=== PATIENT | female | born 1975 | race Caucasian/White ===

== ENCOUNTER 2020-08-28 11:17 | Emergency (ER) | payer BC, OTHER ==
--- NOTE | 2020-08-28 13:28 | ER ---
Nurse's Notes [facility] [place] Name: Traci Gaines Age: 44 yrs Sex: Female : 1975 Arrival Date: 08/28/2020 Time: 11:23 Bed 26 Private MD: Diagnosis: External constriction of right ring finger;Ring or other jewelry causing external constriction-removed Presentation: 08/28 11:57 Chief complaint: Patient states: her mothers wedding ring stuck on her right ring iw finger since last night. Coronavirus screen: At this time, the client does not indicate any symptoms associated with coronavirus-19. Ebola Screen: Patient negative for fever greater than or equal to 101.5 degrees Fahrenheit, and additional compatible Ebola Virus Disease symptoms Patient denies exposure to infectious person. Patient denies travel to an Ebola-affected area in the 21 days before illness onset. No symptoms or risks identified at this time. Initial Sepsis Screen: Does the patient meet any 2 criteria? No. Patient's initial sepsis screen is negative. Does the patient have a suspected source of infection? No. Patient's initial sepsis screen is negative. Risk Assessment: Do you want to hurt yourself or someone else? Patient reports no desire to harm self or others. Onset of symptoms was August 27, 2020. 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 - Social history:: Smoking status: Patient denies any tobacco usage or history of. - Family history:: not pertinent. Screenin:09 Abuse screen: Denies threats or abuse. Denies injuries from another. Nutritional ca1 screening: No deficits noted. Tuberculosis screening: No symptoms or risk factors identified. Fall Risk None identified. Assessment: 13:09 General: Appears in no apparent distress. comfortable, Behavior is calm, cooperative, ca1 appropriate for age. Pain: Complains of pain in dorsal aspect of proximal phalanx of right ring finger Pain currently is 6 out of 10 on a pain scale. Neuro: Level of Consciousness is awake, alert, obeys commands, Oriented to person, place, time, situation. Derm: Skin is intact, is healthy with good turgor, Skin is pink, warm \T\ dry. Musculoskeletal: Circulation, motion, and sensation intact. Capillary refill < 3 seconds. Vital Signs: 12:37 BP 133 / 75; Pulse 83; Resp 20; Temp 98.4(O); Pulse Ox 100% ; Weight 106.14 kg (M); iw Height 5 ft. 4 in. (162.56 cm) (R); Pain 6/10; 12:37 Body Mass Index 40.17 (106.14 kg, 162.56 cm) iw ED Course: 11:23 Patient arrived in ED. as 11:58 Triage completed. iw 11:58 Arm band placed on. iw 12:36 Cathy Giron, JAKE is Primary Nurse. iw 12:43 Mario Cruz MD is Attending Physician. [facility] 12:55 Primary Nurse role handed off by Cathy Giron RN ca1 12:55 Ngozi Floers RN is Primary Nurse. ca1 13:09 Patient has correct armband on for positive identification. ca1 13:14 Removal of Removed ring from right ring finger. Removed ring with ring cutter Patient ca1 tolerated well. 13:14 Neosporin and band aid applied. ca1 13:40 No provider procedures requiring assistance completed. Patient did not have IV access ca1 during this emergency room visit. Administered Medications: No medications were administered Outcome: 13:27 Discharge ordered by . [facility] 13:40 Discharged to home ambulatory, with significant other. ca1 13:40 Condition: stable 13:40 Discharge instructions given to patient, Instructed on discharge instructions, follow up and referral plans. medication usage, Demonstrated understanding of instructions, follow-up care, medications, Prescriptions given X 1. 13:40 Patient left the ED. ca1 Signatures: Mario Cruz MD MD cha Martinez, Amelia as Cathy Giron RN RN Ngozi Flores RN RN ca1
--- NOTE | 2020-08-28 13:28 | EDPHYS ---
Physician Documentation [facility] Name: Traci Gaines Age: 44 yrs Sex: Female : 1975 Arrival Date: 08/28/2020 Time: 11:23 Bed 26 Private MD: JULIO C Physician Mario Cruz HPI: 08/28 13:17 This 44 yrs old Female presents to ER via Ambulatory with complaints of ring alexandra stuck on finger. 13:17 The patient or guardian reports decreased range of motion, pain. The complaints affect alexandra the MCP of right ring finger. Context: The problem was sustained at home, resulted from small rings on right ring finger. Onset: The symptoms/episode began/occurred yesterday. Modifying factors: The symptoms are alleviated by nothing, the symptoms are aggravated by nothing. Associated signs and symptoms: The patient has no apparent associated signs or symptoms. Severity of symptoms: At their worst the symptoms were mild, moderate, this morning. The patient has not experienced similar symptoms in the past. 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 - Social history:: Smoking status: Patient denies any tobacco usage or history of. - Family history:: not pertinent. ROS: 13:17 Constitutional: Negative for fever, chills, and weight loss, Eyes: Negative for injury, alexandra pain, redness, and discharge, ENT: Negative for injury, pain, and discharge, Neck: Negative for injury, pain, and swelling, Cardiovascular: Negative for chest pain, palpitations, and edema, Respiratory: Negative for shortness of breath, cough, wheezing, and pleuritic chest pain, Abdomen/GI: Negative for abdominal pain, nausea, vomiting, diarrhea, and constipation, Back: Negative for injury and pain, : Negative for injury, bleeding, discharge, and swelling, Skin: Negative for injury, rash, and discoloration, Neuro: Negative for headache, weakness, numbness, tingling, and seizure, Psych: Negative for depression, anxiety, suicide ideation, homicidal ideation, and hallucinations, Allergy/Immunology: Negative for hives, rash, and allergies, Endocrine: Negative for neck swelling, polydipsia, polyuria, polyphagia, and marked weight changes, Hematologic/Lymphatic: Negative for swollen nodes, abnormal bleeding, and unusual bruising. 13:17 MS/extremity: Positive for pain, swelling, of the dorsal aspect of proximal phalanx of right ring finger and palmar aspect of proximal phalanx of right ring finger. Exam: 13:17 Constitutional: This is a well developed, well nourished patient who is awake, alert, alexandra and in no acute distress. Head/Face: Normocephalic, atraumatic. Eyes: Pupils equal round and reactive to light, extra-ocular motions intact. Lids and lashes normal. Conjunctiva and sclera are non-icteric and not injected. Cornea within normal limits. Periorbital areas with no swelling, redness, or edema. ENT: Nares patent. No nasal discharge, no septal abnormalities noted. Tympanic membranes are normal and external auditory canals are clear. Oropharynx with no redness, swelling, or masses, exudates, or evidence of obstruction, uvula midline. Mucous membranes moist. Neck: Trachea midline, no thyromegaly or masses palpated, and no cervical lymphadenopathy. Supple, full range of motion without nuchal rigidity, or vertebral point tenderness. No Meningismus. Chest/axilla: Normal chest wall appearance and motion. Nontender with no deformity. No lesions are appreciated. Cardiovascular: Regular rate and rhythm with a normal S1 and S2. No gallops, murmurs, or rubs. Normal PMI, no JVD. No pulse deficits. Respiratory: Lungs have equal breath sounds bilaterally, clear to auscultation and percussion. No rales, rhonchi or wheezes noted. No increased work of breathing, no retractions or nasal flaring. Abdomen/GI: Soft, non-tender, with normal bowel sounds. No distension or tympany. No guarding or rebound. No evidence of tenderness throughout. Back: No spinal tenderness. No costovertebral tenderness. Full range of motion. Skin: Warm, dry with normal turgor. Normal color with no rashes, no lesions, and no evidence of cellulitis. Neuro: Awake and alert, GCS 15, oriented to person, place, time, and situation. Cranial nerves II-XII grossly intact. Motor strength 5/5 in all extremities. Sensory grossly intact. Cerebellar exam normal. Normal gait. Psych: Awake, alert, with orientation to person, place and time. Behavior, mood, and affect are within normal limits. 13:17 Musculoskeletal/extremity: ROM: full passive range of motion, limited active range of motion, Circulation is intact in all extremities. Sensation intact. Compartment Syndrome exam of affected extremity: is normal. Joints: All joints appear normal with full range of motion. Vital Signs: 12:37 BP 133 / 75; Pulse 83; Resp 20; Temp 98.4(O); Pulse Ox 100% ; Weight 106.14 kg (M); iw Height 5 ft. 4 in. (162.56 cm) (R); Pain 6/10; 12:37 Body Mass Index 40.17 (106.14 kg, 162.56 cm) iw Procedures: 13:23 Performed ring cutter and removal. alexandra MDM: 12:43 Patient medically screened. [facility] 13:22 Differential diagnosis: contusion, tendonitis. Data reviewed: vital signs, nurses alexandra notes. Data interpreted: crm analyst: rate is 83 beats/min, rhythm is regular, Pulse oximetry: on room air is 100 %. Counseling: I had a detailed discussion with the patient and/or guardian regarding: the historical points, exam findings, and any diagnostic results supporting the discharge/admit diagnosis. Administered Medications: No medications were administered Disposition: 08/28/20 13:27 Discharged to Home. Impression: External constriction of right ring finger, Ring or other jewelry causing external constriction - removed. - Condition is Stable. - Discharge Instructions: Finger Sprain, Adult, Finger Sprain, [id number], Finger or Thumb Dislocation, [id number]. - Prescriptions for Ibuprofen 600 mg Oral Tablet - take 1 tablet by ORAL route every 6 hours As needed take with food; 20 tablet. - Medication Reconciliation Form, Thank You Letter, Antibiotic Education, Prescription Opioid Use form. - Follow up: Private Physician; When: 2 - 3 days; Reason: Recheck today's complaints, Continuance of care, Re-evaluation by your physician. - Problem is new. - Symptoms have improved. Signatures: Mario Cruz MD MD cha Acob, JAKE Melvin RN [facility] Corrections: (The following items were deleted from the chart) 13:40 13:27 08/28/2020 13:27 Discharged to Home. Impression: External constriction of right ca1 ring finger; Ring or other jewelry causing external constriction - removed. Condition is Stable. Forms are Medication Reconciliation Form, Thank You Letter, Antibiotic Education, Prescription Opioid Use. Follow up: Private Physician; When: 2 - 3 days; Reason: Recheck today's complaints, Continuance of care, Re-evaluation by your physician. Problem is new. Symptoms have improved. alexandra
[2020-08-28 13:55] VITALS: BP 133/75; TEMP 98.4; O2SAT 100
== END 2020-08-28 13:40 | disposition home or self-care (01) ==
LOC: ER 11:17
DX: S60.444A External constriction of right ring finger, initial encounter (principal); W49.04XA Ring or other jewelry causing external constriction, initial encounter

== ENCOUNTER 2021-05-11 06:22 | Day surgery (SDC) | payer BC ==
[2021-05-07 15:52] LABS: Absolute Lymphocytes (CBC) 3.1 K/uL (0.7-4.9); Hematocrit 30.7 % (36.0-45.0); Lymphocytes % 30.7 % (15.3-44.8); MPV 7.5 fL (7.6-11.3); RBC Red Blood Cell Count 3.93 M/uL (3.86-4.86)
[2021-05-07 15:58] LABS: Urine Appearance CLEAR (Clear); Urine Bilirubin NEGATIVE (Negative); Urine Blood NEGATIVE (Negative); Urine Color YELLOW (Yellow); Urine Glucose NEGATIVE (Negative); Urine Microscopic Reflex NO UMIC; Urine Protein NEGATIVE (Negative); Urine Specific Gravity <=1.005 (1.005-1.030); Urine Urobilinogen 0.2 mg/dL (0.2-1.0)
[2021-05-11] MEDS ORDERED: propofoL 200 MG/20 ML VIAL IV ONE (06:36)
[2021-05-11] MEDS ORDERED: MIDAZOLAM HCL 2 MG/2 ML INJ ONE (06:37)
[2021-05-11] MEDS ORDERED: NS 0.9% VIAL 10 ML ONE (06:37)
[2021-05-11] MEDS ORDERED: dexAMETHasone 10 MG/ML VIAL ONE (06:37)
[2021-05-11] MEDS ORDERED: FENTANYL CITR 250 MCG/5 ML ONE (06:37)
[2021-05-11] MEDS ORDERED: LIDOCAINE 2% MPF 5 ML VIAL ONE (06:37)
[2021-05-11] MEDS ORDERED: KETAMINE HCL 500 MG/5 ML VIAL ONE (06:37)
[2021-05-11] MEDS ORDERED: ROCURONIUM 50 MG/5 ML VIAL IV ONE (06:37)
[2021-05-11] MEDS ORDERED: ONDANSETRON 4 MG/2 ML VIAL ONE ×2 (06:41→11:23)
[2021-05-11] MEDS ORDERED: Ringers Lactate 1,000 ML IV ONE ×3 (06:56→10:27)
[2021-05-11] MEDS ORDERED: SCOPOLAMINE HYDROBROMIDE PATCH TD ONE (06:56)
[2021-05-11] MEDS ORDERED: BUPIVACAINE 0.25% PF 10 ML VIAL ONE (07:23)
[2021-05-11] MEDS ORDERED: SCOPOLAMINE HYDROBROMIDE PATCH TD SCH (07:30)
[2021-05-11] MEDS ORDERED: Ringers Lactate 1,000 ML IV SCH (07:30)
[2021-05-11] MEDS ORDERED: CEFAZOLIN SODIUM 1 GM/VIAL ONE (07:40)
[2021-05-11] MEDS: CEFAZOLIN/SWI 2gm 2 GM/20 ML SYR ONE ×2 (08:00→08:29)
[2021-05-11] MEDS ORDERED: GLYCOPYRROLATE 0.2 MG/ML SYR ONE (08:37)
[2021-05-11] MEDS ORDERED: KETOROLAC 30 MG/ML INJ ONE (10:17)
[2021-05-11] MEDS ORDERED: PROMETHAZINE INJ 25 MG/ML AMP IV PRN (11:19)
[2021-05-11] MEDS ORDERED: MEPERIDINE HCL 25 MG/ML SYR IM PRN (11:19)
[2021-05-11] MEDS ORDERED: HYDROCODONE/APAP 5/325 MG TAB PO PRN (11:19)
[2021-05-11] MEDS: HYDROMORPHONE HCL 1 MG/ML INJ ONE ×4 (11:20→11:55)
--- NOTE | 2021-05-11 11:54 | P.BOP ---
Preoperative diagnosis: AUb-L/A, mild cervical dysplasia Postoperative diagnosis: same and uterine prolapse, fibroids Primary procedure: TLH BS L ureterolysis,USLS colpopexy,cystoscopy, lysis of sigmoid adhesions Secondary procedure: vaginal morcellation Clerk To Justice: Lizbeth Cabrera Estimated blood loss: min Specimen: uterus tubes Findings: large left broad ligament fibroid, needed left ureterolysisn, apex C=- 2 Anesthesia: General Complications: None Transferred to: Recovery Room Condition: Good
[2021-05-11] MEDS ORDERED: HYDROCODONE/APAP 5/325 MG TAB ONE (12:34)
[2021-05-11 13:08] VITALS: BP 110/61; TEMP 97; O2SAT 97
--- NOTE | 2021-05-11 13:23 | OP ---
Date of Procedure: 05/11/2021 Surgeon: Maria C Calzada MD Forest Science Professor: Lizbeth Menendez. Preoperative Diagnoses: AUB-L/A, the patient with history of ASCUS Pap, also had pelvic pain. Postoperative Diagnoses: AUB-L/A, the patient with history of ASCUS Pap, also had pelvic pain, uteri ne prolapse and fibroids. Procedures Performed: Total laparoscopic hysterectomy, bilateral salpingectomy, vaginal morcellation , then left ureterolysis, uterosacral ligament suspension, colpopexy, cystoscopy, lysis of sigmoid ad hesions. Estimated Blood Loss: Minimal. Specimens: Uterus and tubes. Anesthesia: General endotracheal. Complications: No complications. Drains: No drains. Condition: Stable. Taken to the recovery room in stable fashion after extubation. Findings: Large left broad ligament fibroid displacing the ureter and left sigmoid colon adhesions t o the lateral wall and the rim of the pelvis covering the origin of the tube. Then, after the hyster ectomy was done, the prolapse of the vaginal apex was recognized, was also much more evident after th e fibroids were removed. After informed consent was verified, the patient was taken back to OR. 3 g of Ancef were given. SCD s were placed. She was placed in supine fashion on the operating table. General anesthesia was give n. She was placed in dorsal lithotomy position using Jerry stirrups. Abdomen, vulva, vagina, and pe rineum were prepped and draped in a sterile fashion. Torres was placed to drain the bladder and attac hed for retrograde filling. A large VCare introduced into the uterus and fixed in place. A 1 cm infraumbilical incision made with a scalpel using the open laparoscopy technique. Fascia was incised, tagged with 0 Vicryl sutures. Peritoneum entered sharply. S-retractors were placed. Hasso n introduced and site of entry was checked and was unremarkable. A 10 mm suprapubic and 5 mm left lo wer quadrant ports were placed under direct vision. Upper abdominal cavity unremarkable. Lower abdo nelda cavity after the bowel was packed up in the upper abdomen. The patient was placed in Trendelen aliza. Ovaries completely unremarkable, tubes as well. Left broad ligament fibroid was displacing an d pushing into the left lateral wall. The plan was to proceed with hysterectomy. No evidence of any endometriosis. Preservation of ovaries. The bowel adhesions were seen as dictated in the findings, the pelvic brim covering the fimbriated en d of the tube. The adhesions were taken down sharply with the help of scissors. Once they were all mobilized, leaving the natural attachment of the colon to its site. Then, the tube was picked up and salpingectomy was performed with LigaSure 5 mm curved tip. The broad ligament inferior to the round ligament was opened up anteriorly on the left side. Dissect ion carried all the way to the bladder area. Then, once the round ligament was well exposed, was raz en down after taking down the utero-ovarian ligament. Then, once the posterior broad ligament was fr eed up distal to the round ligament, then dissection was performed the fibroid from the la teral wall. Carefully dissection was performed to separate from the vessels anteriorly and distally from the bladder. Then once the lower end was well defined, this was at the level of the internal os . Carefully lateral dissection was performed to trace the origin of the uterine artery from the inte rnal iliac. Once this was found, the vessel at its origin was clipped with help of two 5 mm clips. The ureter was identified and from the medial leaf of the broad ligament between the uteros acral and the ureter. Dissection was performed and ureter was traced all the way into the ureteric t unnel. Then, it was dissected proximally as well to free from the medial leaf of the broad ligament, so I could create a bladder flap as this was pulling the ureter towards the fibroid. Once this was done, the separation of the fiber was done from the uterosacral as well as the ureter and the ureter was completely out and well visualized. The fat that was hanging on was also dissected sup eriorly allowing me to visualize the tunneled bladder. The peritoneum taken down all the way to the level of the uterosacral ligament on the left side. The n, vessels were identified and isolated. On the opposite side, utero-ovarian tube was removed. The utero-ovarian ligament and round ligament were all taken down. Broad ligament anteriorly connected to the bladder flap and posteriorly taken d own to the right uterosacral ligament. The ureter on the right was visualized and it was far away fr om the dissection. The vessels were skeletonized on the right side. Then, the vesicovaginal space was entered using the monopolar hook blade and making an incision on the anterior part of the vaginal cuff. Then, vessels on the right side were taken down with the help of the bipolar and LigaSure and then with the help o f the regular bipolar curved tip. Once the vessels were fully taken down, the cardinal ligaments were taken down as well and cuff expos ed. On the opposite side, the vessels were taken down as well after exposing them and isolating them . The supports were taken down as well. Then, a circumferential colpotomy was performed with a mono polar hook blade and there was excellent hemostasis and the specimen was detached. Unable to remove the specimen through the vagina by just placing the Allis clamps on the cervix, so I had to go down vaginally due to the presence of the lower uterine fibroid. It was difficult to fit through the small vaginal cuff. Speculum was placed posteriorly and then anteriorly. A small Ballard was used to expose the specimen through the vagina, used [place] clamps to hold the cervix and gradually the cervix was morcell ated exposing the lower part of the uterus. Then, the fibroid was shelled out. Then, the entire spe cimen was removed through the vagina. Handed out for permanent pathology. The vaginal canal was occluded with a sponge and a glove. Thorough irrigation and suction were performed and vaginal cuff was closed with the help of 0 Vicryl sutures at both angles. Then, 2-0 V-Loc in 2 layers from right to the left and then back to the [facility] t. There was excellent closure. There was detachment of the uterosacrals and prolapse, so the left uterosacral and right uterosacral picked up from the distal end isolating them away from the ureters and reattached the vaginal apex. Once these sutures were tied down, there was excellent support. An terior wall was well straighten out. Thorough irrigation and suction were performed. Ureter had no evidence of electrical, mechanical, or thermal injury to it. Ovaries were well vascularized. The chanel wel that was held with the Monocryl was released. All the trocars were removed under direct vision. Gas was desufflated and all the trocars were removed. Instrument, needle, and sponge counts were co rrect. The gas was desufflated from the abdominal cavity after the Анна was removed. The fascia w as closed with the help of 0 Vicryl, tagged. Sutures tied to each other and simple 0 Vicryl suture a t the suprapubic fascial site. All skin incisions closed with the help of 3-0 chromic. Steri-Strips were placed. The Torres was removed. Vaginal sponge was removed. Cystoscopy with a 17-Swedish sheath, 30-degree le ns normal saline. Both ureteric orifices were well visualized with good jets of urine from both. No evidence of any trauma to the bladder. The bladder was drained. The patient was recovered from ane sthesia and counts were correct at the end of the case. She was taken to PACU in a stable condition. She has a 1-week followup appointment with me and mother has been debriefed about the patient. DANYA/CHAVEZ Voice ID: [id number] Report ID: [id number]
[2021-05-11] MEDS ORDERED: HOME MED 1 EA UNK (Melatonin [Melatonin] 10 MG Capsule) PO SCH (21:00)
[2021-05-12] MEDS ORDERED: HOME MED 1 EA UNK (Omeprazole [Omeprazole] 20 MG Tablet.Dr) PO SCH (09:00)
[2021-05-12] MEDS ORDERED: HOME MED 1 EA UNK (Cranberry [Cranberry] 500 MG Capsule) PO SCH (09:00)
[2021-05-12] MEDS ORDERED: hydroCHLOROthiazide 12.5 MG CAP PO SCH (09:00)
== END 2021-05-11 14:15 | disposition home or self-care (01) ==
LOC: OR 06:22
PROVIDERS: ATTEND Obstetrics & Gynecology
PROC: 0UT74ZZ Resection of Bilateral Fallopian Tubes, Percutaneous Endoscopic Approach (ICD-10-PCS; 2021-05-11)
PROC: 0USG7ZZ Reposition Vagina, Via Natural or Artificial Opening (ICD-10-PCS; 2021-05-11)
PROC: 0UT94ZZ Resection of Uterus, Percutaneous Endoscopic Approach (ICD-10-PCS; principal; 2021-05-11 07:30)
DX: N92.1 Excessive and frequent menstruation with irregular cycle (principal); R10.2 Pelvic and perineal pain; R87.610 Atypical squamous cells of undetermined significance on cytologic smear of cervix (ASC-US); Z20.822 Contact with and (suspected) exposure to COVID-19
CPT/HCPCS: 85025; 36415; 86900; 86850; 81025; 86901; 88307; 81003; 58571; 57283; U0003; J2704; J2250; J3010; J1100; J1170 ×2; J0690 ×2; J7120 ×3; J2405 ×2

== ENCOUNTER → 2022-03-15 | Day surgery (SDC) | payer BC ==
--- NOTE | 2022-03-15 13:26 | RAD REPORT ---
EXAM DESCRIPTION: US - Breast Core BX w/US Guidance - 03/15/2022 9:41 am CLINICAL HISTORY: ICD R 92.8 COMPARISON: ultrasound March 02, 2022 TECHNIQUE: The risks, benefits alternatives to the procedure were explained to the patient and infor med consent obtained. Skin and subcutaneous tissues anesthetized with lidocaine. Under sonographic guidance, two 14 gauge vacuum assisted core biopsies of the 8 millimeter mass withi n the upper left breast obtained. 2 centimeter specimens taken. Tissue given to pathology. Subsequently a localizing clip was placed into the mass. Patient experienced no immediate complication IMPRESSION: Vacuum assisted core biopsies of the left breast mass
== END ==
LOC: DS 08:22
PROVIDERS: ATTEND Nurse Practitioner Women's Health
DX: D24.2 Benign neoplasm of left breast (principal)
CPT/HCPCS: 19083; 88305